=== PATIENT | female | born 1995 | race Caucasian/White ===

== ENCOUNTER 2020-04-01 21:47 | Emergency (ER) | payer MEDICAID, OTHER ==
[~2020-04-01] VITALS: Ht 157.5 cm; Wt 52.3 kg
[2020-04-01] MEDS ORDERED: ACETAMINOPHEN 325 MG TABLET PO ONE (22:15)
[2020-04-01] MEDS ORDERED: AMPICILLIN SODIUM/SULBACTAM NA 1.5 GM/VIAL IM ONE (23:00)
[2020-04-01] MEDS ORDERED: AMPICILLIN SODIUM/SULBACTAM NA 3 GM/VIAL IM ONE (23:30)
[2020-04-01] MEDS ORDERED: LIDOCAINE 1% 10 ML VIAL IM ONE (23:45)
[2020-04-01 23:51] VITALS: BP 127/68
== END 2020-04-02 00:03 | disposition home or self-care (01) ==
LOC: EMS 21:52
DX: S02.5XXA Fracture of tooth (traumatic), initial encounter for closed fracture (principal); Z90.89 Acquired absence of other organs; X58.XXXA Exposure to other specified factors, initial encounter; Y93.89 Activity, other specified; Y92.89 Other specified places as the place of occurrence of the external cause; Y99.8 Other external cause status
CPT/HCPCS: 99283; J0295; J3490